=== PATIENT | female | born 1995 | race Caucasian/White ===

== ENCOUNTER 2019-02-23 00:15 | Emergency (ER) | payer OTHER ==
[2019-02-23] MEDS ORDERED: Morphine 4 MG/ML VIAL (1 ml) 4 MG/ML VIAL ONE (00:21)
[2019-02-23] MEDS ORDERED: Morphine 4 MG/ML VIAL (1 ml) 4 MG/ML VIAL IV ONE ×3 (00:22→03:16)
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
[2019-02-23 01:12] LABS: ABS Eosinophils 0.1 10^3/ul (0-0.6); ABS Lymphocytes 1.6 10^3/ul (1.0-4.8); ABS Monocytes 0.4 10^3/ul (0-0.8); ABS Neutrophils 3.1 10^3/ul (1.5-7.7); Eosinophil % 1.1 %; Hematocrit 39 % (35-47); Hemoglobin 13.1 g/dL (12.0-16.0); Lymphocyte % 31.3 %; Mean Corpuscular HGB Conc 33 g/dL (31-36); Mean Corpuscular Hemoglobin 31 pg (27-31); Mean Corpuscular Volume 91 fL (80-97); Mean Platelet Volume 8.7 fL (7.4-10.4); Nucleated Red Blood Cells % 0.1; Platelet Count 204 10^3/uL (150-450); Red Blood Count 4.31 10^6 /uL (3.70-4.87); Red Cell Distribution Width 13 % (10-15); White Blood Count 5.2 10^3/uL (3.5-10.8)
[2019-02-23 01:29] LABS: ALT 17 U/L (7-52); AST 27 U/L (13-39); Albumin/Globulin Ratio 1.3 (1-3); Alkaline Phosphatase 54 U/L (34-104); Anion Gap 7 mmol/L (2-11); BUN/Creatinine Ratio 15.1 (8-20); Blood Urea Nitrogen 11 mg/dL (6-24); CO2 Carbon Dioxide 26 mmol/L (22-32); Calcium 8.8 mg/dL (8.6-10.3); Chloride 106 mmol/L (101-111); EGFR African American 121.8 (>60); EGFR Non-African American 100.6 (>60); Glucose 131 mg/dL (70-100); Potassium 3.8 mmol/L (3.5-5.0); Sodium 139 mmol/L (135-145)
[2019-02-23 01:35] LABS: HCG Pregnancy < 0.60 mIU/mL
[2019-02-23 02:14] LABS: Alcohol 150 mg/dL (<10)
[2019-02-23] MEDS ORDERED: Morphine 10 MG/ML VIAL (1 ml) IV ONE (03:37)
[2019-02-23 03:55] VITALS: BP 123/64
== END 2019-02-23 04:30 | disposition short-term general hospital (02) ==
LOC: ED 00:15
DX: S32.029A Unspecified fracture of second lumbar vertebra, initial encounter for closed fracture (principal); F10.129 Alcohol abuse with intoxication, unspecified; Y90.6 Blood alcohol level of 120-199 mg/100 ml; W11.XXXA Fall on and from ladder, initial encounter; Y93.9 Activity, unspecified
CPT/HCPCS: 36415; 72100; 72125; 72128; 72131; 80053; 80320; 84702; 85025; 99285; G0480; J2270